=== PATIENT | male | born 1985 | race American Indian/Alaskan Native ===

== ENCOUNTER 2019-01-17 23:41 | Emergency (ER) | payer OTHER ==
[2019-01-17 23:59] VITALS: BP 150/82
[2019-01-18] MEDS ORDERED: IBUPROFEN ONE (00:08)
[2019-01-18] MEDS ORDERED: FLEXERIL ONE ×2 (00:09→04:37)
[2019-01-18] MEDS ORDERED: IBUPROFEN PO ONE (00:09)
[2019-01-18] MEDS ORDERED: FLEXERIL PO ONE (00:09)
--- NOTE | 2019-01-18 00:35 | XRay Report ---
PROCEDURE: XR SPINE CERVICAL 2-3V TECHNIQUE: Cevical spine, AP, lateral and odontoid views. HISTORY: neck pain COMPARISONS: None . FINDINGS: Prevertebral soft tissues: Normal . Alignment: Normal . Vertebral body heights/Disk spaces: Normal . Fracture(s): None . Facets: Normal . Bone mineralization: Normal . IMPRESSION: Normal Examination . This document is electronically signed by Leann Kinsey DO., January 18 2019 12:33:57 AM ET
[2019-01-18] MEDS ORDERED: DECADRON IV ONE (03:37)
[2019-01-18] MEDS ORDERED: ZOFRAN IV ONE (03:38)
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
== END 2019-01-18 04:40 | disposition home or self-care (01) ==
LOC: ED 23:41
DX: S16.1XXA Strain of muscle, fascia and tendon at neck level, initial encounter (principal); F12.10 Cannabis abuse, uncomplicated; Z79.899 Other long term (current) drug therapy; V89.2XXA Person injured in unspecified motor-vehicle accident, traffic, initial encounter; Y93.89 Activity, other specified; Y92.488 Other paved roadways as the place of occurrence of the external cause; Y99.8 Other external cause status
CPT/HCPCS: 72040; 93005; 93010; 96374; 96375; 99283; J1100; J2405

== ENCOUNTER 2019-05-18 07:45 | Emergency (ER) | payer SELFPAY ==
[2019-05-18 07:53] VITALS: BP 146/86
[2019-05-18] MEDS ORDERED: ULTRAM PO ONE (09:13)
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
[2019-05-18] MEDS ORDERED: NAPROSYN PO ONE (09:30)
== END 2019-05-18 09:46 | disposition home or self-care (01) ==
LOC: ED 07:45
DX: M25.512 Pain in left shoulder (principal); Z98.890 Other specified postprocedural states; Z79.899 Other long term (current) drug therapy
CPT/HCPCS: 99282